=== PATIENT | female | born 1950 | race Caucasian/White ===

== ENCOUNTER → 2018-08-25 | Outpatient (CLI) | payer MEDICARE ==
[2017-07-10 19:56] VITALS: BMI 37.8
[~2018-08-25] MED LIST: ATOR10TA24 PO; HYDR-385 PO; LISI20TA29 PO; LISI5TAB25 PO; OXYC-865 PO; TRAZ50TA34 PO; TRIA1CAP85 PO
[2018-08-25 08:37] LABS: PLATELET COUNT, AUTOMATED 287 K/uL (150-450)
--- NOTE | 2018-08-25 08:45 | EKG ---
FACILITY: [facility] [place] PATIENT NAME: CANDACE PEREZ : [id number] MR: [id number]: [id number] EXAM DATE: ORDERING PHYSICIAN: MAYA FOX TECHNOLOGIST: Test Reason : Pre-op Blood Pressure : / mmHG Vent. Rate : 064 BPM Atrial Rate : 064 BPM P-R Int : 164 ms QRS Dur : 082 ms QT Int : 398 ms P-R-T Axes : 050 002 008 degrees QTc Int : 410 ms Sinus rhythm with premature atrial complex Borderline left axis No acute appearing findings Confirmed by OLGA LIDIA JONES ([id number] on 08/25/2018 3:29:07 PM Referred By: Confirmed By:OLGA LIDIA JONES
== END ==
LOC: LAB 08:16
PROVIDERS: ATTEND Orthopaedic Surgery Hand Surgery
DX: Z01.812 Encounter for preprocedural laboratory examination (principal); Z01.818 Encounter for other preprocedural examination; M17.12 Unilateral primary osteoarthritis, left knee; E78.5 Hyperlipidemia, unspecified; I10 Essential (primary) hypertension; M25.562 Pain in left knee
CPT/HCPCS: 82040; 82247; 82310; 82374; 82435; 82565; 82947; 84075; 84132; 84155; 84295; 84450; 84460; 84520; 85025; 93005